=== PATIENT | female | born 1960 | race Caucasian/White ===

== ENCOUNTER → 2018-06-05 | Outpatient (CLI) | payer SELFPAY ==
--- NOTE | 2018-06-05 16:34 | RADIOLOGY REPORT (SQ) ---
EXAM DESCRIPTION: FOOT RIGHT COMPLETE COMPLETED DATE/TIME: 06/05/2018 4:00 pm REASON FOR STUDY: M77.31 CALCANEAL SPUR, RT FOOT WEIGHT BEARING M77.31 CALCANEAL SPUR, RIGHT FOOT COMPARISON: None. NUMBER OF VIEWS: Three views. TECHNIQUE: AP, lateral and oblique with weight bearing radiographic images acquired of the right fo ot. LIMITATIONS: None. FINDINGS: MINERALIZATION: Normal. BONES: No acute fracture or dislocation. No worrisome bone lesions. Small plantar and superior calcan eal spurs. JOINTS: No erosions. No marie-articular osteopenia. No chondrocalcinosis. SOFT TISSUES: No swelling. No calcifications. OTHER: No other significant finding. IMPRESSION: Calcaneal spurs. TECHNICAL DOCUMENTATION: JOB ID: [id number] [employer]- All Rights Reserved Reading location - IP/workstation name: [email or web address]
== END ==
LOC: OD 15:45
PROVIDERS: ATTEND Physician Assistant
DX: M77.31 Calcaneal spur, right foot (principal)

== ENCOUNTER 2019-05-11 08:30 | Emergency (ER) | payer SELFPAY ==
[2019-05-11 09:44] LABS: AMORPHOUS SEDIMENT,URINE TRACE /HPF; APPEARANCE,URINE CLOUDY; BILIRUBIN,URINE NEGATIVE (NEGATIVE); COLOR,URINE YELLOW; GLUCOSE, URINE NEGATIVE (NEGATIVE); KETONES,URINE NEGATIVE (NEGATIVE); LEUKOCYTE ESTERASE,URINE MODERATE (NEGATIVE); NITRITE,URINE NEGATIVE (NEGATIVE); PROTEIN,URINE NEGATIVE (NEGATIVE); URINE SPECIFIC GRAVITY 1.027; UROBILINOGEN,URINE NEGATIVE mg/dL (<2.0)
[2019-05-11 10:02] LABS: ABSOLUTE BASOPHILS # (AUTO) 0.1 10^3/uL (0.0-0.2); ABSOLUTE EOSINOPHILS # (AUTO) 0.2 10^3/uL (0.0-0.6); ABSOLUTE LYMPHOCYTES (AUTO) 3.2 10^3/uL (0.5-4.7); ABSOLUTE MONOCYTES (AUTO) 0.5 10^3/uL (0.1-1.4); BASOPHILS % (AUTO) 0.6 % (0-2); EOSINOPHILS % (AUTO) 2.4 % (0-6); HEMATOCRIT 47.6 % (36.0-47.0); HEMOGLOBIN 16.5 g/dL (12.0-15.5); LYMPHOCYTES % (AUTO) 31.9 % (13-45); MEAN CORPUSCULAR HGB CONC 34.7 g/dL (32.0-36.0); MEAN CORPUSCULAR VOLUME 89 fl (80-97); MONOCYTES % (AUTO) 4.8 % (3-13); PLATELET COUNT 414 10^3/uL (150-450); RED BLOOD COUNT 5.33 10^6/uL (3.72-5.28); RED CELL DISTRIBUTION WIDTH 14.1 % (11.5-14.0); SEGMENTED NEUTROPHILS % (AUTO) 60.3 % (42-78); TOTAL CELLS COUNTED % (AUTO) 100 %
[2019-05-11 11:53] LABS: ALBUMIN 4.1 g/dL (3.5-5.0); ALKALINE PHOSPHATASE 76 U/L (38-126); ANION GAP 7 (5-19); ASPARTATE AMINO TRANSFERASE 25 U/L (14-36); BILIRUBIN,DIRECT 0.1 mg/dL (0.0-0.4); BILIRUBIN,TOTAL 0.5 mg/dL (0.2-1.3); BLOOD UREA NITROGEN 21 mg/dL (7-20); CALCIUM 9.8 mg/dL (8.4-10.2); CARBON DIOXIDE 27 mmol/L (22-30); CHLORIDE 104 mmol/L (98-107); GLUCOSE 95 mg/dL (75-110); POTASSIUM 3.7 mmol/L (3.6-5.0); TOTAL PROTEIN 6.6 g/dL (6.3-8.2)
--- NOTE | 2019-05-11 11:58 | ER Document Report ---
ED General - General Chief Complaint: Abdominal Pain Stated Complaint: ABDOMINAL PAIN Time Seen by Provider: 05/11/19 11:57 Primary Care Provider: [facility] [Provider Group] - Follow up in 1 week (call for an appointment tomorrow) QIANA MANRIQUE MD [Primary Care Provider] - Follow up as needed Mode of Arrival: Ambulatory Information source: Patient Notes: 59-year-old female with history of abdominal hernia for the past 3 to 4 years presents to the emergency department with complaints of abdominal pain. She reports yesterday when she was driving home she started feeling a bubble like feeling in her stomach. She reports she went home put her abdominal brace on which has helped her in the past with hernia. She reports she takes oxycodone 3 times a day for chronic back pain is not helping with this pain. Denies other symptoms such as fever vomiting diarrhea. Denies pain with void. Reports last bowel movement yesterday. TRAVEL OUTSIDE OF THE [place] IN LAST 30 DAYS: No - HPI Onset: Yesterday Onset/Duration: Sudden - Related Data Allergies/Adverse Reactions: steroids Allergy (Uncoded 05/11/19 09:19) Home Medications: Oxycodone. Atenolol w/ Lasix. Wellbutrin. Adderrall Past Medical History - General Information source: Patient Last Menstrual Period: hyst - Social History Smoking Status: Current Every Day Smoker Cigarette use (# per day): Yes Frequency of alcohol use: None Drug Abuse: None Occupation: [employer] Family History: None Patient has suicidal ideation: No Patient has homicidal ideation: No - Past Medical History Cardiac Medical History: Reports: Hx Hypercholesterolemia, Hx Hypertension Psychiatric Medical History: Reports: Hx Attention Deficit Hyperactivity Disorder, Hx Bipolar Disorder, Hx Depression Past Surgical History: Reports: Hx Abdominal Surgery, Hx Breast Surgery - breast reduction, Hx Hysterectomy - total Review of Systems - Review of Systems Notes: Review HPI for review of systems., All other systems negative Physical Exam - Vital signs Vitals: Temp Pulse Resp BP Pulse Ox 98.3 F 72 16 135/83 H 97 05/11/19 08:44 05/11/19 08:44 05/11/19 08:44 05/11/19 08:44 05/11/19 08:44 - General General appearance: Appears well, Alert In distress: None - HEENT Head: Normocephalic Eyes: Normal Extraocular movements intact: Yes Neck: Normal, Supple. No: Lymphadenopathy - Respiratory Respiratory status: No respiratory distress Chest status: Nontender Breath sounds: Normal Chest palpation: Normal - Cardiovascular Rhythm: Regular Heart sounds: Normal auscultation Murmur: No - Abdominal Inspection: Normal Distension: No distension Bowel sounds: Normal Tenderness: Tender - midabdominal ttp, soft, no obvious bulge when supine, bulge noted when patient stands up. Organomegaly: No organomegaly - Extremities General upper extremity: Normal ROM General lower extremity: Normal ROM - Neurological Neuro grossly intact: Yes Cognition: Normal Orientation: AAOx4 Tung Coma Scale Eye Opening: Spontaneous [place] Coma Scale Verbal: Oriented Tung Coma Scale Motor: Obeys Commands Tung Coma Scale Total: 15 Speech: Normal - Psychological Associated symptoms: Normal affect, Normal mood - Skin Skin Temperature: Warm Skin Moisture: Dry Skin Color: Normal Course - Re-evaluation Re-evalutation: 05/11/19 12:19 59-year-old female with history of abdominal hernia for the past 3 to 4 years presents emergency department with increased pain. Reports she has used an abdominal brace in the past and that has helped. She reports this time is not helping. She reports she does not remember lifting anything heavy or straining. Denies trauma. Labs unremarkable ultrasound ordered. Patient has oxycodone that she takes for chronic back pain in her pocket. She was instructed she may take 1 as prescribed. 05/11/19 15:07 Patient instructed on all results. Instructed on ventral hernia. When patient lays down in the bed unable to palpate the hernia at all. Patient stands up hernia noted. Patient reports area tender but not worse than normal. Patient reports she does receive insurance and 2 weeks and will follow-up with the surgeon. Abdomen Ultrasound 05/11/19 12:06 IMPRESSION: Midline ventral hernia superior to the umbilicus, abdominal wall defect 2 cm diameter as above Laboratory 05/11/19 05/11/19 05/11/19 09:16 09:45 09:45 WBC 10.0 RBC 5.33 H Hgb 16.5 H Hct 47.6 H MCV 89 MCH 31.0 MCHC 34.7 RDW 14.1 H Plt Count 414 Lymph % (Auto) 31.9 [place] % (Auto) 4.8 Eos % (Auto) 2.4 Baso % (Auto) 0.6 Absolute Neuts (auto) 6.0 Absolute Lymphs (auto) 3.2 Absolute Monos (auto) 0.5 Absolute Eos (auto) 0.2 Absolute Basos (auto) 0.1 Seg Neutrophils % 60.3 Sodium Cancelled Potassium Cancelled Chloride Cancelled Carbon Dioxide Cancelled Anion Gap Cancelled BUN Cancelled Creatinine Cancelled Est GFR ( Amer) Cancelled Est GFR (Non-Af Amer) Cancelled Est GFR (MDRD) Non-Af Cancelled Glucose Cancelled Calcium Cancelled Total Bilirubin Cancelled Direct Bilirubin Cancelled Neonat Total Bilirubin Cancelled Neonat Direct Bilirubin Cancelled Neonat Indirect Bili Cancelled AST Cancelled ALT Cancelled Alkaline Phosphatase Cancelled Total Protein Cancelled Albumin Cancelled Lipase Cancelled EGFR Cancelled Urine Color YELLOW Urine Appearance CLOUDY Urine pH 6.0 Ur Specific [place] 1.027 Urine Protein NEGATIVE Urine Glucose (UA) NEGATIVE Urine Ketones NEGATIVE Urine Blood NEGATIVE Urine Nitrite NEGATIVE Urine Bilirubin NEGATIVE Urine Urobilinogen NEGATIVE Ur Leukocyte Esterase MODERATE H Urine WBC (Auto) 9 Urine RBC (Auto) 25 Urine Bacteria (Auto) TRACE Squamous Epi Cells Auto 5 Amorphous Sediment Auto TRACE Urine Mucus (Auto) MANY Urine Ascorbic Acid 40 H 05/11/19 11:21 WBC RBC Hgb Hct MCV MCH MCHC RDW Plt Count Lymph % (Auto) [place] % (Auto) Eos % (Auto) Baso % (Auto) Absolute Neuts (auto) Absolute Lymphs (auto) Absolute Monos (auto) Absolute Eos (auto) Absolute Basos (auto) Seg Neutrophils % Sodium 138.4 Potassium 3.7 Chloride 104 Carbon Dioxide 27 Anion Gap 7 BUN 21 H Creatinine 0.59 Est GFR ( Amer) > 60 Est GFR (Non-Af Amer) Est GFR (MDRD) Non-Af > 60 Glucose 95 Calcium 9.8 Total Bilirubin 0.5 Direct Bilirubin 0.1 Neonat Total Bilirubin Not Reportable Neonat Direct Bilirubin Not Reportable Neonat Indirect Bili Not Reportable AST 25 ALT 16 Alkaline Phosphatase 76 Total Protein 6.6 Albumin 4.1 Lipase 34.9 EGFR Urine Color Urine Appearance Urine pH Ur Specific [place] Urine Protein Urine Glucose (UA) Urine Ketones Urine Blood Urine Nitrite Urine Bilirubin Urine Urobilinogen Ur Leukocyte Esterase Urine WBC (Auto) Urine RBC (Auto) Urine Bacteria (Auto) Squamous Epi Cells Auto Amorphous Sediment Auto Urine Mucus (Auto) Urine Ascorbic Acid - Vital Signs Vital signs: Temp Pulse Resp BP Pulse Ox 98.4 F 60 16 130/85 H 98 05/11/19 15:50 05/11/19 15:50 05/11/19 15:50 05/11/19 15:50 05/11/19 15:50 - Laboratory Result Diagrams: 05/11/19 09:45 05/11/19 11:21 Laboratory results interpreted by me: 05/11/19 05/11/19 05/11/19 09:16 09:45 11:21 RBC 5.33 H Hgb 16.5 H Hct 47.6 H RDW 14.1 H BUN 21 H Ur Leukocyte Esterase MODERATE H Urine Ascorbic Acid 40 H - Diagnostic Test Radiology reviewed: Image reviewed, Reports reviewed Discharge - Discharge Clinical Impression: Abdominal pain Qualifiers: Abdominal location: periumbilical Qualified Code(s): R10.33 - Periumbilical pain Ventral hernia Qualifiers: Obstruction and gangrene presence: without obstruction or gangrene Qualified Code(s): K43.9 - Ventral hernia without obstruction or gangrene Condition: Stable Disposition: HOME, SELF-CARE Instructions: Hernia (OM) Additional Instructions: *You have been evaluated for abdominal pain, ventral hernia *Your ultrasound showed you had a 2 cm ventral hernia *Avoid heavy lifting, straining *Follow up with a surgeon within one week for evaluation *Return to ED for worsening condition, changes, needs, increased abdominal pain Forms: Return to Work Referrals: QIANA MANRIQUE MD [Primary Care Provider] - Follow up as needed [facility] [Provider Group] - Follow up in 1 week (call for an appointment tomorrow)
--- NOTE | 2019-05-11 15:00 | RADIOLOGY REPORT (SQ) ---
EXAM DESCRIPTION: U/S ABDOMEN LIMITED W/O DOP COMPLETED DATE/TIME: 05/11/2019 1:36 pm REASON FOR STUDY: eval hernia COMPARISON: None. TECHNIQUE: Dynamic and static grayscale images acquired of the abdomen and recorded on PACS. Filemono qamar selected color Doppler and spectral images recorded. LIMITATIONS: None. FINDINGS: Ultrasound of the anterior abdominal wall was performed. Evaluation for ventral hernia. Superior to the umbilicus in the midline anterior abdominal wall, a defect is present measuring about 2 cm in diameter through wedge mesenteric fat protrudes. No shadowing bowel gas or peristalsis in t he hernia sac. IMPRESSION: Midline ventral hernia superior to the umbilicus, abdominal wall defect 2 cm diameter as above TECHNICAL DOCUMENTATION: JOB ID: [id number] [employer]- All Rights Reserved Reading location - IP/workstation name: [email or web address]
[2019-05-11 15:51] VITALS: BP 130/85
== END 2019-05-11 15:51 | disposition home or self-care (01) ==
LOC: ER 08:30
DX: R10.33 Periumbilical pain (principal); K43.9 Ventral hernia without obstruction or gangrene; F17.210 Nicotine dependence, cigarettes, uncomplicated; E78.00 Pure hypercholesterolemia, unspecified; I10 Essential (primary) hypertension; Z88.6 Allergy status to analgesic agent
CPT/HCPCS: 36415; 76705; 80053; 81001; 83690; 85025; 99284

== ENCOUNTER → 2020-03-21 | Outpatient (CLI) | payer SELFPAY ==
[~2020-03-21] MED LIST: COVID-19 VACCINE (PFIZER)/PF 30 MCG/0.3 ML VIAL IM ONE; EPINEPHRINE INJ/PF 1 MG/1 ML AMPULE IM PRN
== END ==
LOC: EMPHEALTH 14:47
PROVIDERS: ATTEND Internal Medicine
DX: Z23 Encounter for immunization (principal)
CPT/HCPCS: 91300

== ENCOUNTER → 2020-04-11 | Outpatient (CLI) | payer SELFPAY | LOC: EMPHEALTH 13:30 | PROVIDERS: ATTEND Internal Medicine | DX: Z23 Encounter for immunization (principal) | CPT/HCPCS: 91300 ==